=== PATIENT | female | born 1955 | race Caucasian/White ===

== ENCOUNTER 2025-01-14 02:35 | Observation (INO) ==
--- NOTE | 2025-01-14 02:44 | Emergency Department Note ---
Impression & Plan Kidney stone on right side ED Provider Note CHIEF COMPLAINT: Kidney stone HISTORY OF PRESENTING ILLNESS: This 69-year-old female patient presents to the emergency department with her for evaluation of a known right kidney stone. The patient was seen at [facility] ER on 01/08/2025 and diagnosed with a 1.6 cm calculus obstructing the right UPJ with mild right hydronephrosis as well as an adjacent 7 mm calculus in the right UPJ. There were multiple bilateral renal calculi and bilateral renal cysts. Blood work on 01/08/2025 showed a normal white blood cell count of 7.84, hemoglobin 11.8, and platelet count of 324. The patient's urinalysis had 2+ blood, but no evidence for infection. Her creatinine was normal at 1.29 with a BUN of 14. The patient saw Dr. Knight of urology on 01/12/2025 and is scheduled for lithotripsy on 01/22/2025. However, tonight she developed severe pain that was not controlled by her oxycodone prescription. Her last dose of ibuprofen was at 9:30 pm and last dose of Tylenol at 10 pm. She took the oxycodone at 11:30 pm without improvement. She denies any fevers. Nausea, but no vomiting. Denies any urinary symptoms. Denies chest pain or SOB. She is not on blood thinners. She has 2 days left of her cefpodoxime. She was not told to take Flomax. REVIEW OF SYSTEMS: See HPI for pertinent positives and pertinent negatives. ALLERGIES: Sulfa, Percocet MEDICATIONS: See below PAST MEDICAL HISTORY: See below PHYSICAL EXAM: VITALS: Vitals are noted on the nurse's note and reviewed by myself. GENERAL: Non toxic, in no acute distress, non-diaphoretic. SKIN: Capillary refill <2 sec. EYES: PERRLA. EOMI. Conjunctivae without injection, sclerae without icterus. NOSE: Patent without discharge. MOUTH: Mucous membranes moist. Uvula midline. Airway patent. NECK: Supple without nuchal rigidity. HEART: Regular rate and rhythm without murmurs gallops or rubs. LUNGS: Clear to auscultation bilaterally without wheezes, rales or rhonchi. No retractions or accessory muscle use. ABDOMEN: Positive bowel sounds x 4. Normal tympanic percussion. Soft, nontender to palpation as the patient states that her pain is deeper than palpation. No masses or hepatosplenomegaly. Kimball sign negative. No CVA tenderness. No guarding, rigidity, or rebound tenderness. No focal RLQ or LLQ tenderness. NEURO: Patient was alert and oriented. No focal neurological deficits. DIFFERENTIAL DIAGNOSIS: Differential diagnosis includes hepatitis, pancreatitis, cholecystitis, cholelithiasis, appendicitis, kidney stone, pyelonephritis, UTI, gastritis, gastroenteritis, mesenteric adenitis, obstruction, constipation, hernia, abdominal abscess, perforation, diverticulitis, IBD, ischemic colitis, abdominal aortic aneurysm, , ectopic , ovarian cyst, ovarian torsion, acute salpingitis, or others. ED COURSE AND MEDICAL DECISION MAKING: MEDICATIONS GIVEN: 500 mL normal saline solution bolus. Toradol 10 mg IV, Dilaudid 0.25 mg IV, and Zofran 4 mg IV. Phenergan 12.5 mg IV. Tylenol 1000 mg IV. Flomax 0.4 mg p.o. Rocephin 2 g IV. MONITOR: Continuous compliance monitor: Order was placed for continuous compliance monitor. Patient was placed on the compliance monitor and continuous pulse ox. Patient was noted to be in normal sinus rhythm at an initial rate of 70 bpm per my interpretation. INTERPRETATION OF LABS: I interpreted the labs with full lab results as below in the lab section of this note. Laboratory results pertinent to the emergent complaint are discussed in the MDM section below. The patient was advised to follow up with their PCP and/or specialist(s) for further outpatient monitoring and management of any abnormal results. INTERPRETATION OF IMAGING: Imaging studies were interpreted by myself and read by radiology as per the imaging section of this note. The patient was advised to follow up with their PCP and/or specialist(s) for further outpatient management of any non-emergent abnormal findings. CT scan of the abdomen and pelvis without contrast shows gross hydronephrosis of the right kidney due to a large obstructing calculus of 23 x 24 mm and a 9 x 8 mm right pelviureteric junction stone. There is slightly increased hydronephrosis from her previous imaging. Right sided hydroureter seen up to the large calculus involving the right lower ureter distal to the iliac vessel crossing which is a new finding. The patient also has stable nonobstructing renal calculi bilaterally. Diverticulosis without diverticulitis. EXTERNAL RECORDS REVIEWED: I reviewed the CT scan findings and laboratory studies from [facility] as summarized above. I also reviewed the patient's urology office visit note from 01/12/2025. CONSULTATIONS: On-call hospitalist MDM SUMMARY: I examined the patient. The patient was diagnosed with a 1.6 cm and a 7 mm obstructing the right UPJ with mild hydronephrosis. The patient saw urology on 01/12/2025 and is scheduled for lithotripsy on 01/22/2025. However, the patient had severe pain tonight that was not relieved with oxycodone. An IV lock was placed and labs were drawn. The patient was hydrated with 500 mL normal saline solution bolus and medicated as above for her pain and nausea. The patient was also given Flomax 0.4 mg p.o. White blood cell count normal at 6.66. Hemoglobin normal at 12.7. Platelet count normal at 360. Creatinine has increased to 1.67 from 1.29 on 01/08/2025. BUN is normal at 23. CMP otherwise normal. Lipase normal. Urinalysis with 1+ protein, 3+ blood, 2+ leukocyte esterase, greater than 50 white blood cells, and greater than 20 red blood cells. Urine culture is pending. The patient was given Rocephin 2 g IV due to concerns for infection. CT scan of the abdomen and pelvis without contrast shows gross hydronephrosis of the right kidney due to a large obstructing calculus of 23 x 24 mm and a 9 x 8 mm right pelviureteric junction stone. There is slightly increased hydronephrosis from her previous imaging. Right sided hydroureter seen up to the large calculus involving the right lower ureter distal to the iliac vessel crossing which is a new finding. The patient also has stable nonobstructing renal calculi bilaterally. Diverticulosis without diverticulitis. I had a meaningful discussion about this patient with Dr. Rojo who agrees with my assessment and the treatment plan. While the patient's pain did improve with the above medications, she is still symptomatic and does not feel that she can manage her symptoms at home. Given the patient's pain, large stones, and concern for infection, I agree the patient would benefit from admission. I spoke with the on-call hospitalist who agreed to admit the patient for further management. Please refer to their dictation for further details. The patient's care was transferred in stable condition. DIAGNOSIS: Large right kidney stones with ? Infection Past Med/Surg History Problem List Kidney stone on right side (Acute) Changing skin lesion Encounter for pre-operative examination Encounter for breast reconstruction following mastectomy Arthritis Back problem Incisional hernia Painful scar History of mastectomy 2002 Right Medical History Pulmonary nodule Limb alert care status RUE Ventral hernia History of colon cancer s/p colon resection History of breast cancer s/p right mastectomy Osteoarthritis Attention deficit disorder (ADD) Kidney stones Surgical History S/P breast implant, saline (~09/2019) s Bilateral Breast Implant Exchange for Saline Breast Implants(Bilateral) - Kathi Riley MD s Revision Abdominal Scar(Not Applicable) - Kathi Riley MD History of incisional hernia repair (10/08/19) Open Incisional Hernia Repair with Ovitex Mesh, Umbilical Hernia Repair, Enterolysis(Not Applicable) - Nicolas Carranza, DO 10/08/19 Nausea and vomiting after administration of anesthetic agent History of tooth extraction wisdom teeth H/O lithotripsy 2008 & 2009; laser lithotripsy 2010 Family History Aunt Breast cancer maternal Father Colorectal cancer Diabetes Other Cancer Social History Smoking Status: Never smoker Second Hand Exposure: No; Do You Dip or Chew Tobacco: No; Hx Alcohol Use: Yes Alcohol type: beer and wine Alcohol Intake Frequency Comment: 2-3 drinks a week Hx Substance Use: No Preferred Language: Danish Communication Ability: Effective Coloring Room Worker Required: No Beliefs That Will Affect Care: None marital status: Current Living Situation: Spouse current occupational status: retired Feels Safe at Home: Yes Assistive Devices: Glasses Allergies Allergies Allergy/AdvReac Type Severity Reaction Status Date / Time Sulfa (Sulfonamide Allergy Intermediate Hives Verified 01/14/25 03:48 Antibiotics) oxycodone [From Percocet] AdvReac Intermediate "LOOPY", Verified 01/14/25 03:47 VOMITING Home Meds Home Medications Medication Instructions Recorded Confirmed alendronate 70 mg tablet 70 mg PO WK 08/28/21 01/14/25 dextroamphetamine-amphetamine 20 10 mg PO DAILY 01/04/24 01/14/25 mg tablet cetirizine 10 mg capsule (Zyrtec) 10 mg PO DAILY 05/21/24 01/14/25 atorvastatin 20 mg tablet 20 mg PO DAILY 01/12/25 01/14/25 bupropion HCl 150 mg 24 hr tablet, 300 mg PO DAILY 01/12/25 01/14/25 extended release cefpodoxime 200 mg tablet 200 mg PO 2XD 01/12/25 01/14/25 lisinopril 5 mg tablet 5 mg PO DAILY 01/12/25 01/14/25 ondansetron 4 mg disintegrating 4 mg PO Q12H PRN Nausea 01/12/25 01/14/25 tablet sumatriptan succinate 25 mg tablet 25 mg PO 2XD PRN Migraine Headache 01/12/25 01/14/25 magnesium 200 mg tablet 400 mg PO DAILY 01/14/25 01/14/25 riboflavin (vitamin B2) 400 mg 400 mg PO DAILY 01/14/25 01/14/25 tablet Results & Data (ED) Vital Signs Vital Signs - 24 hr 01/14/25 02:37 01/14/25 03:00 01/14/25 03:04 Temperature 36.5 C Temperature Source Temporal Artery Scan Pulse Rate 78 67 Pulse Rate [Apical] 70 Pulse Rate from SpO2 Sensor Pulse Rhythm Regular Pulse Rhythm [Apical] Regular Respiratory Rate 16 15 16 Respiratory Effort / Characteristics Non-Labored Spontaneous Non-Labored Spontaneous Respiratory Depth Normal Normal Respiratory Pattern Regular Regular Blood Pressure 138/91 Blood Pressure [Left Arm] 135/80 Blood Pressure Mean 106 Blood Pressure Mean [Left Arm] 98 Pulse Oximetry 98 100 100 Oxygen Delivery Method Room Air Room Air Room Air Sepsis Recent Fever Within 48 Hours No Sepsis New/Unexplained Change in Mental Status N/A Sepsis Action Taken by Nursing No Action Required 01/14/25 03:18 01/14/25 03:30 01/14/25 04:00 Temperature Temperature Source Pulse Rate 59 L 56 L 61 Pulse Rate [Apical] Pulse Rate from SpO2 Sensor 55 L 61 Pulse Rhythm Pulse Rhythm [Apical] Respiratory Rate 18 15 Respiratory Effort / Characteristics Respiratory Depth Respiratory Pattern Blood Pressure 153/76 H 130/71 Blood Pressure [Left Arm] Blood Pressure Mean 101 90 Blood Pressure Mean [Left Arm] Pulse Oximetry 99 96 Oxygen Delivery Method Room Air Sepsis Recent Fever Within 48 Hours Sepsis New/Unexplained Change in Mental Status Sepsis Action Taken by Nursing 01/14/25 04:30 01/14/25 04:30 01/14/25 06:00 Temperature Temperature Source Pulse Rate 60 Pulse Rate [Apical] 64 64 Pulse Rate from SpO2 Sensor 61 Pulse Rhythm Pulse Rhythm [Apical] Regular Regular Respiratory Rate 18 16 15 Respiratory Effort / Characteristics Non-Labored Spontaneous Non-Labored Spontaneous Respiratory Depth Normal Normal Respiratory Pattern Regular Regular Blood Pressure 132/74 Blood Pressure [Left Arm] 132/74 144/81 H Blood Pressure Mean 93 Blood Pressure Mean [Left Arm] 93 102 Pulse Oximetry 94 93 100 Oxygen Delivery Method Room Air Room Air Room Air Sepsis Recent Fever Within 48 Hours Sepsis New/Unexplained Change in Mental Status Sepsis Action Taken by Nursing 01/14/25 06:40 Temperature Temperature Source Pulse Rate 62 Pulse Rate [Apical] Pulse Rate from SpO2 Sensor Pulse Rhythm Pulse Rhythm [Apical] Respiratory Rate 16 Respiratory Effort / Characteristics Respiratory Depth Respiratory Pattern Blood Pressure 139/83 Blood Pressure [Left Arm] Blood Pressure Mean Blood Pressure Mean [Left Arm] Pulse Oximetry 96 Oxygen Delivery Method Room Air Sepsis Recent Fever Within 48 Hours Sepsis New/Unexplained Change in Mental Status Sepsis Action Taken by Nursing Laboratory Data 01/14/25 02:59 01/14/25 02:59 Lab Results 01/14/25 01/14/25 Range/Units 02:59 04:15 WBC 6.66 (4.8-10.8) K/ul RBC 3.97 L (4.20-5.40) M/uL Hgb 12.7 (12.0-16.0) g/dL Hct 38.9 (37.0-47.0) % MCV 98.0 (80.0-100.0) fL MCH 32.0 (25.0-34.0) pg MCHC 32.6 (32.0-36.0) g/dL RDW Std Deviation 45.9 (36.4-46.3) fL RDW Coeff of Guillermo 12.7 (11.5-14.5) % Plt Count 361 (130-400) K/uL MPV 8.9 L (9.4-12.4) fL Immature Gran % (Auto) 0.2 % Neut % (Auto) 58.4 % Lymph % (Auto) 27.2 % [place] % (Auto) 9.2 % Eos % (Auto) 3.9 % Baso % (Auto) 1.1 % Neut # (Auto) 3.90 (1.40-6.50) K/uL Lymph # (Auto) 1.81 (1.20-3.40) K/uL [place] # (Auto) 0.61 H (0.11-0.59) K/uL Eos # (Auto) 0.26 (0.00-0.50) K/uL Baso # (Auto) 0.07 (0.00-0.20) K/uL Immature Gran # (Auto) 0.01 (0.01-0.20) K/uL Sodium 136 (136-145) mmol/L Potassium 4.6 (3.5-5.1) mmol/L Chloride 103 (98-107) mmol/L Carbon Dioxide 26 (21-32) mmol/L Anion Gap 7 (3-11) BUN 23 (6-23) mg/dl Creatinine 1.67 H (0.6-1.2) mg/dl Est Cr Clr Drug Dosing 30.5 ml/min eGFR 32.75 BUN/Creatinine Ratio 13.8 (10-20) Glucose 95 (70-99(Fasting)) mg/dl Calcium 9.1 (8.6-10.3) mg/dl Total Bilirubin 0.4 (0.2-1.0) mg/dl AST 28 (13-39) U/L ALT 28 (7-52) U/L Alkaline Phosphatase 50 (34-104) U/L Total Protein 7.0 (6.0-8.3) gm/dl Albumin 4.4 (3.4-5.0) gm/dl Globulin 2.6 (2.5-4.0) gm/dl Albumin/Globulin Ratio 1.7 (0.9-2) Lipase 14 (11-82) U/L Urine Color Dark Yellow Urine Appearance Clear (Clear) Urine pH 7.0 (4.5-7.5) Ur Specific Outing 1.013 (1.000-1.030) Urine Protein 1+ H (Negative) Urine Glucose (UA) Negative (Negative) Urine Ketones Negative (Negative) Urine Blood 3+ H (Negative) Urine Nitrite Negative (Negative) Urine Bilirubin Negative (Negative) Urine Urobilinogen Negative (Negative) Ur Leukocyte Esterase 2+ H (Negative) Urine WBC (Auto) >50 H (0-5) /hpf Urine RBC (Auto) >20 H (0-2) /hpf U Hyaline Cast (Auto) 0-2 (0-2) /lpf U Epithel Cells (Auto) 0-2 (0-2) /hpf Urine Bacteria (Auto) None Seen (None Seen) Urine Comment Administered Medications Sodium Chloride (Nss) 1,000 mls @ 75 mls/hr IV .[id number] ONE Stop: 01/14/25 18:37 Last Admin: 01/14/25 05:44 Dose: 75 mls/hr Documented By: COLBY Discontinued Medications Hydromorphone HCl (Hydromorphone Inj 0.5 Mg/0.5 Ml Syr) 0.25 mg IV NOW STA Stop: 01/14/25 03:00 Last Admin: 01/14/25 03:14 Dose: 0.25 mg Documented By: COLBY Sodium Chloride (Nss) 500 mls @ 999 mls/hr IV .[id number] ONE Stop: 01/14/25 03:29 Last Infusion: 01/14/25 03:35 Dose: Infused Documented By: Admin: 01/14/25 03:12 Dose: 999 mls/hr Documented By: COLBY Promethazine HCl (Phenergan) 12.5 mg in 50.5 mls @ 202 mls/hr IV NOW STA Stop: 01/14/25 04:57 Last Infusion: 01/14/25 05:15 Dose: Infused Documented By: Admin: 01/14/25 04:57 Dose: 202 mls/hr Documented By: COLBY Ceftriaxone Sodium (Rocephin) 2,000 mg in 50 mls @ 100 mls/hr IV NOW STA Stop: 01/14/25 05:25 Last Infusion: 01/14/25 05:45 Dose: Infused Documented By: Admin: 01/14/25 05:18 Dose: 100 mls/hr Documented By: COLBY Acetaminophen (Ofirmev) 1,000 mg in 100 mls @ 400 mls/hr IV NOW STA Stop: 01/14/25 05:24 Last Infusion: 01/14/25 06:00 Dose: Infused Documented By: Admin: 01/14/25 05:45 Dose: 400 mls/hr Documented By: COLBY Ketorolac Tromethamine (Ketorolac Tromethamine 15 Mg/Ml Vial) 10 mg IV NOW ONE Stop: 01/14/25 03:00 Last Admin: 01/14/25 03:14 Dose: 10 mg Documented By: COLBY Ondansetron HCl (Ondansetron Inj 2 Mg/Ml 2 Ml Vial) 4 mg IV NOW STA Stop: 01/14/25 03:00 Last Admin: 01/14/25 03:14 Dose: 4 mg Documented By: COLBY Tamsulosin HCl (Tamsulosin Hcl 0.4 Mg Cap) 0.4 mg PO NOW ONE Stop: 01/14/25 05:11 Last Admin: 01/14/25 05:40 Dose: 0.4 mg Documented By: COLBY Imaging Data Radiologist's Impression: Abdomen/Pelvis CT 01/14/25 03:51 EXAM: CT abd pelvis wo con CLINICAL HISTORY: worsening sxs from large right stones TECHNIQUE: Contiguous axial images were obtained from the level of the diaphragm to the pubic symphysis without intravenous or oral contrast. Coronal and sagittal reconstructions were likewise performed and indicated to increase the sensitivity for detecting clinically relevant pathology. CT scan was performed according to ALARA (as low as reasonably achievable). COMPARISON: 18:13:15 FRIT MIXER AND BURNER. FINDINGS: The visualized lung bases are clear. Evaluation of the abdominal and pelvic visceral organs is limited without intravenous contrast. The unenhanced liver, spleen, pancreas, and adrenal glands are grossly unremarkable. The gallbladder is present. The kidneys are normal in size and attenuation. Right kidney shows gross hydronephrosis due to large obstructing calculus of size 23 x 24 mm and 9 x 8 mm involving right pelviureteric junction. Right sided hydroureter is seen up to the large calculus of size 9 mm involving right lower ureter, distal to the iliac vessel crossing. Right kidney shows non-obstructing calculi of size 3 mm in mid calyx, 2 mm and 4 mm in lower calyx. Left kidney shows non-obstructing calculi of size 2 mm in upper calyx, 10.7 mm , 11 mm in mid calyx and 12 mm in lower calyx. Stable renal cyst. No adenopathy or fluid collections are seen. No evidence of focal or diffuse bowel wall thickening or evidence of bowel obstruction is seen. No imaging evidence of appendicitis. The aorta is normal in caliber. The urinary bladder is normal in contour. Pelvic viscera are grossly unremarkable. No aggressive appearing osseous lesions are identified. Multiple small uncomplicated colonic diverticulosis. Degenerative changes involving spine in the form of multilevel marginal osteophytes, disc space reduction and facetal arthrosis. IMPRESSION: Right kidney shows gross hydronephrosis due to large obstructing calculus of size 23 x 24 mm and 9 x 8 mm involving right pelviureteric junction. - slightly increased hydronephrosis. Right sided hydroureter is seen up to the large calculus of size 9 mm involving right lower ureter, distal to the iliac vessel crossing.- -new finding. Right kidney shows non-obstructing calculi of size 3 mm in mid calyx, 2 mm and 4 mm in lower calyx.- stable. Left kidney shows non-obstructing calculi of size 2 mm in upper calyx, 10.7 mm , 11 mm in mid calyx and 12 mm in lower calyx. increased in size and number. Multiple small uncomplicated colonic diverticulosis.-stable. Electronically signed by Keith Bird 01-14-2025 05:00 AM Discharge Plan Visit Data Chief Complaint: Kidney Stone Stated Complaint: KIDNEY STONE ED Provider: Rosa Maria Rojo ED Midlevel Provider: Patricia Siddiqi. Discharge Problem: Kidney stone on right side Patient Disposition: Admitted As Inpatient Condition: Fair Discharge Instructions Interventions: ED Discharge Assessment Last Done: 01/14/25 06:40 Forms Stand Alone Forms: [facility] Prescriptions Prescriptions: No Action ondansetron 4 mg tablet,disintegrating 4 mg PO Q12H MDD 8mg PRN (Reason: Nausea) cefpodoxime 200 mg tablet 200 mg PO 2XD bupropion HCl 150 mg tablet extended release 24 hr 300 mg PO DAILY atorvastatin 20 mg tablet 20 mg PO DAILY lisinopril 5 mg tablet 5 mg PO DAILY sumatriptan succinate 25 mg tablet 25 mg PO 2XD PRN (Reason: Migraine Headache) Zyrtec 10 mg capsule 10 mg PO DAILY alendronate 70 mg tablet 70 mg PO WK Rx Instructions: TAKES ON WEDNESDAYS. dextroamphetamine-amphetamine 20 mg tablet 10 mg PO DAILY magnesium 200 mg Tablet 400 mg PO DAILY riboflavin (vitamin B2) 400 mg Tablet 400 mg PO DAILY Referrals Referrals: Mariposa Rios MD [Primary Care Provider] -
[2025-01-14] MEDS: SODIUM CHLORIDE 0.9% 500 ML IV ONE (03:12)
[2025-01-14] MEDS: HYDROmorphone INJ 0.5 MG/0.5 ML SYR IV STA (03:14)
[2025-01-14] MEDS: KETOROLAC TROMETHAMINE 15 MG/ML VIAL IV ONE (03:14)
[2025-01-14] MEDS: ONDANSETRON INJ 2 MG/ML 2 ML VIAL IV STA (03:14)
[2025-01-14 03:21] LABS: Hematocrit (blood only) 38.9 % (37.0-47.0); Hemoglobin 12.7 g/dL (12.0-16.0); Immature Granulocytes # (auto) 0.01 K/uL (0.01-0.20); Immature Granulocytes % (auto) 0.2 %; Mean Corpuscular Hemoglobin 32.0 pg (25.0-34.0); Mean Corpuscular Volume 98.0 fL (80.0-100.0); Platelet Count 361 K/uL (130-400); RDW Standard Deviation 45.9 fL (36.4-46.3); Red Blood Count 3.97 M/uL (4.20-5.40); White Blood Count 6.66 K/ul (4.8-10.8)
[2025-01-14 03:38] LABS: Alanine Aminotransferase 28.0 U/L (7-52); Albumin Globulin Ratio 1.7 (0.9-2); Albumin Level 4.4 gm/dl (3.4-5.0); Alkaline Phosphatase 50.0 U/L (34-104); Anion Gap 7.0 (3-11); Bilirubin,Total 0.4 mg/dl (0.2-1.0); Blood Urea Nitrogen 23.0 mg/dl (6-23); Calcium 9.1 mg/dl (8.6-10.3); Carbon Dioxide 26.0 mmol/L (21-32); Chloride 103.0 mmol/L (98-107); Creatinine Clr Calc Pharmacy 30.5 ml/min; Globulin 2.6 gm/dl (2.5-4.0); Glucose 95.0 mg/dl (70-99(Fasting)); Lipase 14.0 U/L (11-82); Potassium 4.6 mmol/L (3.5-5.1); Sodium 136.0 mmol/L (136-145); Total Protein 7.0 gm/dl (6.0-8.3)
--- NOTE | 2025-01-14 04:29 | Emergency Department Note ---
ED Visit Note I was consulted by the [facility] Provider. I personally made/approved the management plan and take responsibility for the patient management. I performed a substantive portion of the visit. This includes the aspects of: Personally seeing the patient -MDM Patient will be admitted to the [facility] service .
[2025-01-14 04:43] LABS: Appearance Urine Clear (Clear); Bacteria Urine Automated None Seen (None Seen); Cast Urine Automated 0-2 /lpf (0-2); Epithelial Cell Urine Auto 0-2 /hpf (0-2); Glucose Urine UA Negative (Negative); RBC Urine Automated >20 /hpf (0-2); WBC Urine Automated >50 /hpf (0-5)
[2025-01-14] MEDS: PROMETHAZINE 12.5 MG/50.5 ML BAG IV STA (04:57)
--- NOTE | 2025-01-14 05:01 | CT Scan Report ---
EXAM: CT abd pelvis wo con CLINICAL HISTORY: worsening sxs from large right stones TECHNIQUE: Contiguous axial images were obtained from the level of the diaphragm to the pubic symphysis without intravenous or oral contrast. Coronal and sagittal reconstructions were likewise performed and indicated to increase the sensitivity for detecting clinically relevant pathology. CT scan was performed according to ALARA (as low as reasonably achievable). COMPARISON: 18:13:15 GYRO COMPASS TESTER. FINDINGS: The visualized lung bases are clear. Evaluation of the abdominal and pelvic visceral organs is limited without intravenous contrast. The unenhanced liver, spleen, pancreas, and adrenal glands are grossly unremarkable. The gallbladder is present. The kidneys are normal in size and attenuation. Right kidney shows gross hydronephrosis due to large obstructing calculus of size 23 x 24 mm and 9 x 8 mm involving right pelviureteric junction. Right sided hydroureter is seen up to the large calculus of size 9 mm involving right lower ureter, distal to the iliac vessel crossing. Right kidney shows non-obstructing calculi of size 3 mm in mid calyx, 2 mm and 4 mm in lower calyx. Left kidney shows non-obstructing calculi of size 2 mm in upper calyx, 10.7 mm , 11 mm in mid calyx and 12 mm in lower calyx. Stable renal cyst. No adenopathy or fluid collections are seen. No evidence of focal or diffuse bowel wall thickening or evidence of bowel obstruction is seen. No imaging evidence of appendicitis. The aorta is normal in caliber. The urinary bladder is normal in contour. Pelvic viscera are grossly unremarkable. No aggressive appearing osseous lesions are identified. Multiple small uncomplicated colonic diverticulosis. Degenerative changes involving spine in the form of multilevel marginal osteophytes, disc space reduction and facetal arthrosis. IMPRESSION: Right kidney shows gross hydronephrosis due to large obstructing calculus of size 23 x 24 mm and 9 x 8 mm involving right pelviureteric junction. - slightly increased hydronephrosis. Right sided hydroureter is seen up to the large calculus of size 9 mm involving right lower ureter, distal to the iliac vessel crossing.- -new finding. Right kidney shows non-obstructing calculi of size 3 mm in mid calyx, 2 mm and 4 mm in lower calyx.- stable. Left kidney shows non-obstructing calculi of size 2 mm in upper calyx, 10.7 mm , 11 mm in mid calyx and 12 mm in lower calyx. increased in size and number. Multiple small uncomplicated colonic diverticulosis.-stable. Electronically signed by Keith Bird 01-14-2025 05:00 AM
[2025-01-14] MEDS: cefTRIAXone SODIUM 2,000 MG/50 ML BAG IV STA (05:18)
--- NOTE | 2025-01-14 05:23 | History & Physical Report ---
Date of Service January 14, 2025 Assessment & Plan (1) ARF (acute renal failure): Plan: Assessment and plan below following discussion of case with ED provider and reviewing patient history/pertinent normal/abnormal diagnostic test results. ARF Secondary to progressive obstructive uropathy Recurrent kidney stones No sepsis for now Home CAITLYN inhibitor and NSAID Rx contributory hypertension, stable hyperlipidemia on statin Rx Right breast cancer status post surgery status post tamoxifen Rx, in remission colon cancer status post surgery, in remission ADHD, mood disorder, stable on regimen Admit to MedSurg Analgesia, strain urine Patient counseled regarding adverse effects of NSAIDs on kidney function. Monitor creatinine response to IVF, hold lisinopril until creatinine back to baseline Urology consult re: obstructing kidney stone N.p.o. in anticipation of procedure DVT prophylaxis. Heparin subcu Full code Text document was generated using [email or web address] voice recognition software. It may contain grammatical or spelling errors. Kindly contact undersigned for clarification of any documentation item in question. History of Present Illness Chief Complaint: Worsening kidney stone pain Primary Care Provider: Mariposa Rios MD History obtained from patient and records. Medical history significant for hypertension, hyperlipidemia, breast cancer status post surgery status post tamoxifen Rx, colon cancer status post surgery, history of calcium oxalate kidney stones, migraine, ADHD, mood disorder. Last week, patient had achy right sided flank pain symptoms reminiscent of kidney stone attack. No fever, no chills, no hematuria. Patient consulted [facility] ER. CT abdomen pelvis showed mild right hydronephrosis with note of 1.6 cm calculus obstructing the right UPJ. Another 7 mm calculus noted in the right UPJ as well. Patient refused admission recommendation because she would need to be transferred to [facility] for urology services after a few days. Patient prescribed oral cefpodoxime course and oxycodone medications on dis charge. Patient saw [facility] urologist 2 days ago. Surgery contemplated 01/22. Patient had worsening discomfort last night, unrelieved by oxycodone Rx. Patient trying to sparingly use oxycodone due to adverse effects from prior intake. Ibuprofen working better for patient's pain as per her account. Patient without hematuria, fever, chills. Good bowel movement. Patient consulted ER for worsening symptoms. Medical History as above Surgical History : Urologic procedures, breast implant, breast reconstruction, colectomy, finger surgery, right modified radical mastectomy, umbilical hernia repair, Reeder neuroma removal right foot Family History : Alcoholism, breast cancer, DM, heart disease, ovarian cancer, rectal cancer, suicide Personal/Social history : Non-smoker, occasional EtOH intake, retired schoolteacher Allergies Allergy/AdvReac Type Severity Reaction Status Date / Time Sulfa (Sulfonamide Allergy Intermediate Hives Verified 01/14/25 03:48 Antibiotics) oxycodone [From Percocet] AdvReac Intermediate "LOOPY", Verified 01/14/25 03:47 VOMITING Home Medications Medication Instructions Recorded Confirmed Type alendronate 70 mg tablet 70 mg PO WK 08/28/21 01/14/25 History dextroamphetamine-amphetamine 20 10 mg PO DAILY 01/04/24 01/14/25 History mg tablet cetirizine 10 mg capsule (Zyrtec) 10 mg PO DAILY 05/21/24 01/14/25 History atorvastatin 20 mg tablet 20 mg PO DAILY 01/12/25 01/14/25 History bupropion HCl 150 mg 24 hr tablet, 300 mg PO DAILY 01/12/25 01/14/25 History extended release cefpodoxime 200 mg tablet 200 mg PO 2XD 01/12/25 01/14/25 History lisinopril 5 mg tablet 5 mg PO DAILY 01/12/25 01/14/25 History ondansetron 4 mg disintegrating 4 mg PO Q12H PRN Nausea 01/12/25 01/14/25 History tablet sumatriptan succinate 25 mg tablet 25 mg PO 2XD PRN Migraine Headache 01/12/25 01/14/25 History magnesium 200 mg tablet 400 mg PO DAILY 01/14/25 01/14/25 History riboflavin (vitamin B2) 400 mg 400 mg PO DAILY 01/14/25 01/14/25 History tablet Past Med/Surg History Problem List ARF (acute renal failure) Kidney stone on right side (Acute) Changing skin lesion Encounter for pre-operative examination Encounter for breast reconstruction following mastectomy Arthritis Back problem Incisional hernia Painful scar History of mastectomy 2002 Right Medical History Pulmonary nodule Limb alert care status RUE Ventral hernia History of colon cancer s/p colon resection History of breast cancer s/p right mastectomy Osteoarthritis Attention deficit disorder (ADD) Kidney stones Surgical History S/P breast implant, saline (~09/2019) s Bilateral Breast Implant Exchange for Saline Breast Implants(Bilateral) - Kathi Riley MD s Revision Abdominal Scar(Not Applicable) - Kathi Riley MD History of incisional hernia repair (10/08/19) Open Incisional Hernia Repair with Ovitex Mesh, Umbilical Hernia Repair, Enterolysis(Not Applicable) - Nicolas Carranza, 10/08/19 Nausea and vomiting after administration of anesthetic agent History of tooth extraction wisdom teeth H/O lithotripsy 2008 & 2009; laser lithotripsy 2010 Family History Aunt Breast cancer maternal Father Colorectal cancer Diabetes Other Cancer Social History Smoking Status: Never smoker Second Hand Exposure: No; Do You Dip or Chew Tobacco: No; Hx Alcohol Use: Yes Alcohol type: beer and wine Alcohol Intake Frequency Comment: 2-3 drinks a week Hx Substance Use: No Preferred Language: Somali Communication Ability: Effective Director Of Volunteer Services Required: No Beliefs That Will Affect Care: None marital status: Current Living Situation: Spouse current occupational status: retired Feels Safe at Home: Yes Assistive Devices: Glasses Review of Systems Review of Systems: As per HPI, all other systems reviewed and negative Physical Exam 2 Physical Exam: GENERAL: Comfortable, pleasant, no respiratory distress SKIN: Normal color, warm HEENT: Bespectacled, pink palpebral conjunctivae, no ptosis, dry buccal mucosa NECK : Supple, no tenderness CHEST : CTA, no tenderness HEART : RRR, no obvious murmurs ABDOMEN: Some distention, minimal hypogastric tenderness EXTREMITIES : No LE swelling/tenderness, palpable pulses, no other conspicuous deformities noted NEUROLOGIC : Coherent, no facial asymmetry, no other gross focality Results & Data Results & Data Vital Signs (Past 12 Hours) Vital Signs Temp Pulse Pulse Resp BP BP Pulse Ox 01/14/25 04:30 60 16 132/74 93 01/14/25 04:30 64 18 132/74 94 01/14/25 04:00 61 15 130/71 96 01/14/25 03:30 56 L 18 153/76 H 99 01/14/25 03:04 67 16 100 01/14/25 03:00 70 15 135/80 100 01/14/25 02:37 36.5 C 78 16 138/91 98 O2 Del Method 01/14/25 04:30 Room Air 01/14/25 04:30 Room Air 01/14/25 04:00 Room Air 01/14/25 03:30 01/14/25 03:04 Room Air 01/14/25 03:00 Room Air 01/14/25 02:37 Room Air Laboratory Results Laboratory Results WBC 6.66 K/ul (4.8-10.8) 01/14/25 02:59 RBC 3.97 M/uL (4.20-5.40) L 01/14/25 02:59 Hgb 12.7 g/dL (12.0-16.0) 01/14/25 02:59 Hct 38.9 % (37.0-47.0) 01/14/25 02:59 MCV 98.0 fL (80.0-100.0) 01/14/25 02:59 MCH 32.0 pg (25.0-34.0) 01/14/25 02:59 MCHC 32.6 g/dL (32.0-36.0) 01/14/25 02:59 RDW Std Deviation 45.9 fL (36.4-46.3) 01/14/25 02:59 RDW Coeff of Guillermo 12.7 % (11.5-14.5) 01/14/25 02:59 Plt Count 361 K/uL (130-400) 01/14/25 02:59 MPV 8.9 fL (9.4-12.4) L 01/14/25 02:59 Immature Gran % (Auto) 0.2 % 01/14/25 02:59 Neut % (Auto) 58.4 % 01/14/25 02:59 Lymph % (Auto) 27.2 % 01/14/25 02:59 [place] % (Auto) 9.2 % 01/14/25 02:59 Eos % (Auto) 3.9 % 01/14/25 02:59 Baso % (Auto) 1.1 % 01/14/25 02:59 Neut # (Auto) 3.90 K/uL (1.40-6.50) 01/14/25 02:59 Lymph # (Auto) 1.81 K/uL (1.20-3.40) 01/14/25 02:59 [place] # (Auto) 0.61 K/uL (0.11-0.59) H 01/14/25 02:59 Eos # (Auto) 0.26 K/uL (0.00-0.50) 01/14/25 02:59 Baso # (Auto) 0.07 K/uL (0.00-0.20) 01/14/25 02:59 Immature Gran # (Auto) 0.01 K/uL (0.01-0.20) 01/14/25 02:59 Sodium 136 mmol/L (136-145) 01/14/25 02:59 Potassium 4.6 mmol/L (3.5-5.1) 01/14/25 02:59 Chloride 103 mmol/L (98-107) 01/14/25 02:59 Carbon Dioxide 26 mmol/L (21-32) 01/14/25 02:59 Anion Gap 7 (3-11) 01/14/25 02:59 BUN 23 mg/dl (6-23) 01/14/25 02:59 Creatinine 1.67 mg/dl (0.6-1.2) H 01/14/25 02:59 Est Cr Clr Drug Dosing 30.5 ml/min 01/14/25 02:59 eGFR 32.75 01/14/25 02:59 BUN/Creatinine Ratio 13.8 (10-20) 01/14/25 02:59 Glucose 95 mg/dl (70-99(Fasting)) 01/14/25 02:59 Calcium 9.1 mg/dl (8.6-10.3) 01/14/25 02:59 Total Bilirubin 0.4 mg/dl (0.2-1.0) 01/14/25 02:59 AST 28 U/L (13-39) 01/14/25 02:59 ALT 28 U/L (7-52) 01/14/25 02:59 Alkaline Phosphatase 50 U/L (34-104) 01/14/25 02:59 Total Protein 7.0 gm/dl (6.0-8.3) 01/14/25 02:59 Albumin 4.4 gm/dl (3.4-5.0) 01/14/25 02:59 Globulin 2.6 gm/dl (2.5-4.0) 01/14/25 02:59 Albumin/Globulin Ratio 1.7 (0.9-2) 01/14/25 02:59 Lipase 14 U/L (11-82) 01/14/25 02:59 Urine Color Dark Yellow 01/14/25 04:15 Urine Appearance Clear (Clear) 01/14/25 04:15 Urine pH 7.0 (4.5-7.5) 01/14/25 04:15 Ur Specific [place] 1.013 (1.000-1.030) 01/14/25 04:15 Urine Protein 1+ (Negative) H 01/14/25 04:15 Urine Glucose (UA) Negative (Negative) 01/14/25 04:15 Urine Ketones Negative (Negative) 01/14/25 04:15 Urine Blood 3+ (Negative) H 01/14/25 04:15 Urine Nitrite Negative (Negative) 01/14/25 04:15 Urine Bilirubin Negative (Negative) 01/14/25 04:15 Urine Urobilinogen Negative (Negative) 01/14/25 04:15 Ur Leukocyte Esterase 2+ (Negative) H 01/14/25 04:15 Urine WBC (Auto) >50 /hpf (0-5) H 01/14/25 04:15 Urine RBC (Auto) >20 /hpf (0-2) H 01/14/25 04:15 U Hyaline Cast (Auto) 0-2 /lpf (0-2) 01/14/25 04:15 U Epithel Cells (Auto) 0-2 /hpf (0-2) 01/14/25 04:15 Urine Bacteria (Auto) None Seen (None Seen) 01/14/25 04:15 Urine Comment 01/14/25 04:15 Impressions Abdomen/Pelvis CT 01/14/25 03:51 EXAM: CT abd pelvis wo con CLINICAL HISTORY: worsening sxs from large right stones TECHNIQUE: Contiguous axial images were obtained from the level of the diaphragm to the pubic symphysis without intravenous or oral contrast. Coronal and sagittal reconstructions were likewise performed and indicated to increase the sensitivity for detecting clinically relevant pathology. CT scan was performed according to ALARA (as low as reasonably achievable). COMPARISON: 18:13:15 PRINTING GRAY CLOTH TENDER. FINDINGS: The visualized lung bases are clear. Evaluation of the abdominal and pelvic visceral organs is limited without intravenous contrast. The unenhanced liver, spleen, pancreas, and adrenal glands are grossly unremarkable. The gallbladder is present. The kidneys are normal in size and attenuation. Right kidney shows gross hydronephrosis due to large obstructing calculus of size 23 x 24 mm and 9 x 8 mm involving right pelviureteric junction. Right sided hydroureter is seen up to the large calculus of size 9 mm involving right lower ureter, distal to the iliac vessel crossing. Right kidney shows non-obstructing calculi of size 3 mm in mid calyx, 2 mm and 4 mm in lower calyx. Left kidney shows non-obstructing calculi of size 2 mm in upper calyx, 10.7 mm , 11 mm in mid calyx and 12 mm in lower calyx. Stable renal cyst. No adenopathy or fluid collections are seen. No evidence of focal or diffuse bowel wall thickening or evidence of bowel obstruction is seen. No imaging evidence of appendicitis. The aorta is normal in caliber. The urinary bladder is normal in contour. Pelvic viscera are grossly unremarkable. No aggressive appearing osseous lesions are identified. Multiple small uncomplicated colonic diverticulosis. Degenerative changes involving spine in the form of multilevel marginal osteophytes, disc space reduction and facetal arthrosis. IMPRESSION: Right kidney shows gross hydronephrosis due to large obstructing calculus of size 23 x 24 mm and 9 x 8 mm involving right pelviureteric junction. - slightly increased hydronephrosis. Right sided hydroureter is seen up to the large calculus of size 9 mm involving right lower ureter, distal to the iliac vessel crossing.- -new finding. Right kidney shows non-obstructing calculi of size 3 mm in mid calyx, 2 mm and 4 mm in lower calyx.- stable. Left kidney shows non-obstructing calculi of size 2 mm in upper calyx, 10.7 mm , 11 mm in mid calyx and 12 mm in lower calyx. increased in size and number. Multiple small uncomplicated colonic diverticulosis.-stable. Electronically signed by Keith Bird 01-14-2025 05:00 AM
[2025-01-14] MEDS ORDERED: ACETAMINOPHEN 325 MG TAB PO PRN (05:24)
[2025-01-14] MEDS ORDERED: HYDROmorphone INJ 0.5 MG/0.5 ML SYR IV PRN (05:24)
[2025-01-14] MEDS ORDERED: PROMETHAZINE 6.25 MG/50.25 ML BAG IV PRN (05:24)
[2025-01-14] MEDS: TAMSULOSIN HCL 0.4 MG CAP PO ONE (05:40)
[2025-01-14] MEDS: SODIUM CHLORIDE 0.9% 1,000 ML IV ONE (05:44)
[2025-01-14] MEDS: ACETAMINOPHEN 1,000 MG/100 ML VIAL IV STA ×2 (05:45→17:16)
[2025-01-14] MEDS ORDERED: HYDROCODONE/ACETAMOPHEN 5/325MG TAB PO PRN (05:58)
[2025-01-14] MEDS: ATORVASTATIN 20 MG TAB PO SCH (08:55)
[2025-01-14] MEDS ORDERED: CETIRIZINE HCL 10 MG TABLET PO SCH (09:00)
[2025-01-14] MEDS ORDERED: NON-FORMULARY MEDICATION (Riboflavin (Vitamin B2) 400 mg Tablet) PO SCH (09:00)
[2025-01-14] MEDS: DEXTROAMPHETAMINE/AMPHETAMINE IR 20 MG TAB PO SCH (09:05)
--- NOTE | 2025-01-14 09:29 | Urology Consultation ---
<Statement entered by Lanre Knight MD - 01/14/25 12:22> 69-year-old female recently seen in the urology office for nephrolithiasis. It appears that one of her right renal stones has moved to the mid ureter and is now causing flank pain and worsened renal function. We will plan on cystoscopy, right retrograde pyelogram and right ureteral stent placement. Due to the v olume of stone we may also need to perform laser lithotripsy to facilitate stent placement. Date of Consultation January 14, 2025 Assessment & Plan (1) Kidney stone on right side: 69-year-old female admitted for right flank pain and ANTONIETTA secondary to large obstructing right calculi. Patient afebrile and hemodynamically stable Labs reviewedcreatinine 1.67, WBC 6.66, hemoglobin 12.7 Urinalysis showed blood, leukocyte esterase and pyuria, but was negative for bacteria Urine culture 01/12 prelim with no growth Urine culture 01/14 pending She has been on course of cefpodoxime as an outpatient She received ceftriaxone in the emergency department CT abdomen pelvis reviewed and discussed Offered surgical intervention with right ureteroscopy with laser lithotripsy and right stent placement today, she is agreeable Will proceed to OR for Cystoscopy, retrograde pyelogram, right ureteroscopy, laser lithotripsy, stone basketing, and right ureteral stent placement Risks and benefits of procedure to be reviewed with patient by Dr. Knight Keep n.p.o. for procedure She has received ceftriaxone this morning, which is appropriate for preop antibiotic Continue supportive care medical management per primary service Urology will follow, please contact service with any additional questions or concerns History of Present Illness Reason for Consultation: hydroureter, large stone Attending Physician: Eugene Galindo MD History of Present Illness This is a 69-year-old female who recently established with urology for bilateral nephrolithiasis. She was set up for outpatient surgical intervention with right ureteroscopy with laser lithotripsy on 01/22. In the interim, she developed severe right flank pain and presented to the emergency department today for further evaluation. On arrival, she was afebrile and hemodynamically stable. Lab work showed WBC 6.66, hemoglobin 12.7, creatinine 1.67. Urinalysis demonstrated 1+ protein, 3+ blood, 2+ LE, >50 WBC, >20 RBC, negative for bacteria. Workup included CT abdomen and pelvis which demonstrates right hydronephrosis secondary to a large obstructing calculi involving the right UPJ measuring approximately 23 x 24 mm and 9 x 8 mm, right hydroureter up to an obstructing 9 mm calculus in the right lower ureter. Bilateral nonobstructing renal calculi. Patient was admitted to the hospital medicine service for right obstructing calculi and ANTONIETTA. Urology is consulted for large stones and hydronephrosis. Patient seen and examined at bedside this morning. She reports pain is improved since arrival. She rates her discomfort at 3 out of 10. Nausea and vomiting has resolved. No fever or chills. She is voiding spontaneously. She is currently NPO. Allergies Allergy/AdvReac Type Severity Reaction Status Date / Time Sulfa (Sulfonamide Allergy Intermediate Hives Verified 01/14/25 03:48 Antibiotics) oxycodone [From Percocet] AdvReac Intermediate "LOOPY", Verified 01/14/25 03:47 VOMITING Home Medications Medication Instructions Recorded Confirmed Type alendronate 70 mg tablet 70 mg PO WK 08/28/21 01/14/25 History dextroamphetamine-amphetamine 20 10 mg PO DAILY 01/04/24 01/14/25 History mg tablet cetirizine 10 mg capsule (Zyrtec) 10 mg PO DAILY 05/21/24 01/14/25 History atorvastatin 20 mg tablet 20 mg PO DAILY 01/12/25 01/14/25 History bupropion HCl 150 mg 24 hr tablet, 300 mg PO DAILY 01/12/25 01/14/25 History extended release cefpodoxime 200 mg tablet 200 mg PO 2XD 01/12/25 01/14/25 History lisinopril 5 mg tablet 5 mg PO DAILY 01/12/25 01/14/25 History ondansetron 4 mg disintegrating 4 mg PO Q12H PRN Nausea 01/12/25 01/14/25 History tablet sumatriptan succinate 25 mg tablet 25 mg PO 2XD PRN Migraine Headache 01/12/25 01/14/25 History magnesium 200 mg tablet 400 mg PO DAILY 01/14/25 01/14/25 History riboflavin (vitamin B2) 400 mg 400 mg PO DAILY 01/14/25 01/14/25 History tablet Patient History Medical History Pulmonary nodule Limb alert care status RUE Ventral hernia History of colon cancer s/p colon resection History of breast cancer s/p right mastectomy Osteoarthritis Attention deficit disorder (ADD) Kidney stones Surgical History S/P breast implant, saline (~09/2019) s Bilateral Breast Implant Exchange for Saline Breast Implants(Bilateral) - Kathi Riley MD s Revision Abdominal Scar(Not Applicable) - Kathi Riley MD History of incisional hernia repair (10/08/19) Open Incisional Hernia Repair with Ovitex Mesh, Umbilical Hernia Repair, Enterolysis(Not Applicable) - Nicolas Carranza, 10/08/19 Nausea and vomiting after administration of anesthetic agent History of tooth extraction wisdom teeth H/O lithotripsy 2008 & 2009; laser lithotripsy 2010 Family History Aunt Breast cancer maternal Father Colorectal cancer Diabetes Other Cancer Social History Smoking Status: Never smoker Second Hand Exposure: No; Do You Dip or Chew Tobacco: No; Hx Alcohol Use: Yes Alcohol type: beer and wine Alcohol Intake Frequency Comment: 2-3 drinks a week Hx Substance Use: No Preferred Language: Kiswahili Communication Ability: Effective Solar System Designer Required: No Beliefs That Will Affect Care: None marital status: Current Living Situation: Spouse current occupational status: retired Feels Safe at Home: Yes Assistive Devices: Glasses Review of Systems Review of Systems: All systems reviewed & are unremarkable except as noted in HPI & below Physical Exam Constitutional: well developed and well nourished; no acute distress Respiratory: normal respiratory effort; no respiratory distress and no labored breathing Gastrointestinal (Abdomen): Inspection/Auscultation: abdomen normal to inspection Musculoskeletal: Head/Neck/Chest: normocephalic Neurologic: moves all extremities and awake Psychiatric: Orientation: alert and oriented x 3 Results & Data Vital Signs (Past 12 Hours) Vital Signs Temp Pulse Pulse Resp BP BP Pulse Ox 01/14/25 06:40 62 16 139/83 96 01/14/25 06:00 64 15 144/81 H 100 01/14/25 04:30 60 16 132/74 93 01/14/25 04:30 64 18 132/74 94 01/14/25 04:00 61 15 130/71 96 01/14/25 03:30 56 L 18 153/76 H 99 01/14/25 03:18 59 L 01/14/25 03:04 67 16 100 01/14/25 03:00 70 15 135/80 100 01/14/25 02:37 36.5 C 78 16 138/91 98 O2 Del Method 01/14/25 06:40 Room Air 01/14/25 06:00 Room Air 01/14/25 04:30 Room Air 01/14/25 04:30 Room Air 01/14/25 04:00 Room Air 01/14/25 03:30 01/14/25 03:18 01/14/25 03:04 Room Air 01/14/25 03:00 Room Air 01/14/25 02:37 Room Air PG Care Time/CCT Total # of Minutes Spent Total Time Spent with Patient: Total time spent is greater than 50% in coordination of care (as documented) at patient's floor/unit and/or counseling patient: Coding Level of Care Code 93365 INT INP/OBS CARE 2/55MIN Diagnoses Kidney stone on right side N20.0
[2025-01-14] MEDS: HEPARIN SOD 5,000 UNIT/0.5 ML VIAL SQ SCH (13:02)
[2025-01-14] MEDS ORDERED: PROPOFOL IV EMULSION 10 MG/ML 20 ML VIAL IV ONE (13:11)
[2025-01-14] MEDS: LACTATED RINGER'S 1,000 ML IV SCH (13:11)
[2025-01-14] MEDS ORDERED: LIDOCAINE 2% 2 ML VIAL/AMP(20MG/ML) INFIL ONE (13:11)
--- NOTE | 2025-01-14 13:22 | Anesthesiology Consultation ---
Date of Service January 14, 2025 Assessment & Plan Chart Review Chart Review: Acceptable Risk for Surgery Consults Requested none History Surgery Operation Date: 01/14/25 10:40 Proposed Procedures p Cystoscopy Right Ureteral Stent Placemet, Laser Lithotripsy - Lanre Knight MD Height/Weight Height: 5 ft 7 in Weight: 65.4 kg Allergies Allergy/AdvReac Type Severity Reaction Status Date / Time Sulfa (Sulfonamide Allergy Intermediate Hives Verified 01/14/25 03:48 Antibiotics) oxycodone [From Percocet] AdvReac Intermediate "LOOPY", Verified 01/14/25 03:47 VOMITING Medications Home Medications Medication Instructions Recorded Confirmed Last Taken alendronate 70 mg tablet 70 mg PO WK 08/28/21 01/14/25 12/31/24 dextroamphetamine-amphetamine 20 10 mg PO DAILY 01/04/24 01/14/25 01/13/25 mg tablet cetirizine 10 mg capsule (Zyrtec) 10 mg PO DAILY 05/21/24 01/14/25 01/13/25 atorvastatin 20 mg tablet 20 mg PO DAILY 01/12/25 01/14/25 01/13/25 bupropion HCl 150 mg 24 hr tablet, 300 mg PO DAILY 01/12/25 01/14/25 01/13/25 extended release cefpodoxime 200 mg tablet 200 mg PO 2XD 01/12/25 01/14/25 01/13/25 lisinopril 5 mg tablet 5 mg PO DAILY 01/12/25 01/14/25 01/13/25 ondansetron 4 mg disintegrating 4 mg PO Q12H PRN Nausea 01/12/25 01/14/25 01/08/25 tablet sumatriptan succinate 25 mg tablet 25 mg PO 2XD PRN Migraine Headache 01/12/25 01/14/25 Unknown magnesium 200 mg tablet 400 mg PO DAILY 01/14/25 01/14/25 01/13/25 riboflavin (vitamin B2) 400 mg 400 mg PO DAILY 01/14/25 01/14/25 01/13/25 tablet Active Medications Generic Name Dose Route Start Last Admin Trade Name Freq PRN Reason Stop Dose Admin Amphetamine/Dextroamphetamine 10 mg 01/14/25 09:00 01/14/25 09:05 Dextroamphetamine/Amphetamine Ir 20 Mg Tab PO 01/28/25 08:59 10 mg DAILY KAILASH Administration Atorvastatin Calcium 20 mg 01/14/25 09:00 01/14/25 08:55 Atorvastatin 20 Mg Tab PO 02/13/25 08:59 20 mg DAILY KAILASH Administration Bupropion HCl 300 mg 01/14/25 09:00 01/14/25 08:55 Bupropion Xl 300 Mg Tabcr PO 02/13/25 08:59 300 mg DAILY KAILASH Administration Heparin Sodium (Porcine) 5,000 units 01/14/25 14:00 01/14/25 13:02 Heparin Sod 5,000 Unit/0.5 Ml Vial SQ 02/13/25 13:59 Not Given Q8 KAILASH Sodium Chloride 1,000 mls @ 100 mls/hr 01/14/25 05:18 01/14/25 05:44 Nss IV 01/14/25 15:17 75 mls/hr .Q10H ONE Administration Lactated Ringer's 1,000 mls @ 15 mls/hr 01/14/25 13:15 01/14/25 13:11 Lr IV 01/17/25 13:14 15 mls/hr .Q24H KAILASH Administration NPO Date Last Intake of Fluids: 01/13/25 Time Last Intake of Fluids: 18:00 Date Last Intake of Solids: 01/13/25 Time Last Intake of Solids: 18:00 Past Medical History Medical History Pulmonary nodule Limb alert care status RUE Ventral hernia History of colon cancer s/p colon resection History of breast cancer s/p right mastectomy Osteoarthritis Attention deficit disorder (ADD) Kidney stones Past Family History Family History Aunt Breast cancer maternal Father Colorectal cancer Diabetes Other Cancer Past Surgical History Surgical History S/P breast implant, saline (~09/2019) s Bilateral Breast Implant Exchange for Saline Breast Implants(Bilateral) - Kathi Riley MD s Revision Abdominal Scar(Not Applicable) - Kathi Riley MD History of incisional hernia repair (10/08/19) Open Incisional Hernia Repair with Ovitex Mesh, Umbilical Hernia Repair, Enterolysis(Not Applicable) - Nicolas Charlotte Carranza, DO 10/08/19 Nausea and vomiting after administration of anesthetic agent History of tooth extraction wisdom teeth H/O lithotripsy 2008 & 2009; laser lithotripsy 2010 Social History Smoking Status: Never smoker Do You Dip or Chew Tobacco: No Hx Alcohol Use: Yes Alcohol type: wine alcohol intake frequency: holidays/special occasions only Hx Substance Use: No substance use type: does not use Physical Exam Vital Signs Last Vital Signs Temp 36.6 C 01/14/25 13:05 Pulse 72 01/14/25 13:05 Resp 18 01/14/25 13:05 BP 127/72 01/14/25 13:05 Pulse Ox 99 01/14/25 13:05 O2 Del Method Room Air 01/14/25 13:05 Testing Laboratory Results 01/14/25 02:59 01/14/25 02:59 Urine Color Dark Yellow 01/14/25 04:15 Urine Appearance Clear (Clear) 01/14/25 04:15 Urine pH 7.0 (4.5-7.5) 01/14/25 04:15 Ur Specific [place] 1.013 (1.000-1.030) 01/14/25 04:15 Urine Protein 1+ (Negative) H 01/14/25 04:15 Urine Glucose (UA) Negative (Negative) 01/14/25 04:15 Urine Ketones Negative (Negative) 01/14/25 04:15 Urine Nitrite Negative (Negative) 01/14/25 04:15 Ur Leukocyte Esterase 2+ (Negative) H 01/14/25 04:15 Urine WBC (Auto) >50 /hpf (0-5) H 01/14/25 04:15 Urine RBC (Auto) >20 /hpf (0-2) H 01/14/25 04:15 U Hyaline Cast (Auto) 0-2 /lpf (0-2) 01/14/25 04:15 U Epithel Cells (Auto) 0-2 /hpf (0-2) 01/14/25 04:15 Urine Bacteria (Auto) None Seen (None Seen) 01/14/25 04:15 01/14/25 04:15 Urine Culture - Preliminary Urine,Clean Catch No growth - Less than 1,000 colonies/mL, Final report to follow.
[2025-01-14] MEDS ORDERED: ATROPINE SULFATE 0.1 MG/ML 10ML SYR IV PRN (13:26)
[2025-01-14] MEDS ORDERED: PROMETHAZINE HCL 6.25 MG in SODIUM CHLORIDE 0.9% 50 ML IV PRN (13:26)
[2025-01-14] MEDS ORDERED: ONDANSETRON INJ 2 MG/ML 2 ML VIAL IV PRN (13:26)
[2025-01-14] MEDS ORDERED: HYDROmorphone INJ 2 MG/ML SYR/VIAL IV PRN (13:26)
[2025-01-14] MEDS ORDERED: PROPOFOL IV EMULSION 10 MG/ML 100 ML VIAL IV ONE (13:43)
[2025-01-14] MEDS ORDERED: SCOPOLAMINE 1 MG/72 HR TDSY PATCH TD ONE (13:53)
[2025-01-14] MEDS ORDERED: ONDANSETRON INJ 2 MG/ML 2 ML VIAL ONE (14:07)
[2025-01-14] MEDS ORDERED: DEXAMETHASONE SOD INJ 4 MG/ML VIAL ONE (14:07)
[2025-01-14] MEDS ORDERED: ePHEDrine sulfate 50 MG/5 ML SYR ONE (14:08)
[2025-01-14] MEDS ORDERED: PHENYLEPHRINE 100MCG/ML 5ML SYR ONE ×2 (14:19→14:26)
[2025-01-14] MEDS ORDERED: PHENYLEPHRINE HCL 10 MG/ML VIAL ONE (14:26)
--- NOTE | 2025-01-14 14:44 | Communication Note ---
Patient seen and examined at bedside. Flank pain was severe overnight, now bearable. Dilaudid only effective prn at this time. Would like definitive management of stones. On exam, lying comfortably, trace tenderness to palpation on right back and flank, positive CVA tenderness. Significant creatinine elevation consistent with imaging findings of large stone and hydroureter. UA consistent with bacterial infection in setting of hydroureter. Patient presenting with hydroureter in setting of large renal stone. Size far too large to pass conservatively. Urology consult, appreciate recs. Continue ceftriaxone, increase rate of fluids. Will be getting stent placement and laser lithotripsy later today. Date of Service: January 14, 2025
[2025-01-14] MEDS: DIATRIZOATE MEGLUMINE 30% 100ML VIAL INSTIL ONE (15:10)
--- NOTE | 2025-01-14 15:20 | Operative Report ---
PG Post Operative Report Pre & Post Diagnosis Operation Date: 01/14/25 10:40 Preoperative diagnosis: Right ureteral and renal stones Postoperative diagnosis: Right ureteral and renal stones I identified the patient and participated in the time-out.: Yes Procedure Operation Date: 01/14/25 10:40 cystoscopy, right retrograde pyelogram, right ureteroscopy, laser lithotripsy and basket extraction of stone, right ureteral stent placement Surgeon Lanre Knight MD Tape Weaver None Estimated Blood Loss 0 Findings See Below 2 stones in the distal right ureter, fragmented with laser and removed Redundant folds of the proximal ureter at the right UPJ, no significant obstruction Stone in the right kidney was fragmented with the laser Right ureteral stent left in place Specimens Right ureteral stones for chemical analysis Drains 6 Niuean x 26 cm double-J ureteral stent in the right ureter Anesthesia Type General Complications none Disposition Accompanied Patient To Recovery: Yes Disposition: Recovery Room Indications This is a 69-year-old female followed by urology for nephrolithiasis. Due to deteriorating renal function and ongoing flank pain, she is brought to the OR for right ureteral stent placement and possible stone treatment. Description of Procedure The patient was identified in the holding area and informed consent was confirmed. She was marked on the right side, then was taken to the operating room where general anesthesia was initiated. She was placed in the dorsal lithotomy position with all pressure points appropriately padded. She was prepped and draped in the usual sterile fashion and a preoperative timeout was performed. A well-lubricated cystoscope was inserted per urethra and panendoscopy was perf ormed. The urethra was normal with no strictures or mucosal abnormalities. Her bladder appeared grossly normal with no tumors or stones appreciated. Ureteral orifices were in orthotopic position bilaterally I attempted to advance a 0.038 inch zip wire up the right ureter under fluoroscopic guidance, however met resistance in the distal ureter. The wire curled back upon itself at the level of the shadow suspicious for obstructing stone. I advanced a semirigid ureteroscope into the distal ureter and identified the stone. The 200 m thulium laser fiber was introduced, then using high frequency / low amplitude settings, the stone was dusted and broken into smaller fragments. Once the fragments were satisfactorily small, they were removed to the bladder with a wire basket. These fragments were evacuated at the end of the procedure and sent for chemical analysis. It appeared that there were 2 separate moderate sized stones in the distal ureter which were removed. Once these were cleared, I advanced a wire to the kidney under fluoroscopic guidance. There was a shadow over the renal silhouette suspicious for residual stone in the kidney. Once the wire seems to be in good position, I advanced a 5 Niuean open-ended catheter over it to try to aspirate some urine from the kidney, however no urine could be aspirated, suggesting the wire was actually still in some redundant tissue at the renal pelvis. The flexible ureteroscope was then introduced and used to survey the proximal ureter. There was a fair amount of redundant tissue of the ureter at the renal pelvis. I was able to navigate the flexible ureteroscope into the kidney itself. In this area I was able to visualize a large stone consistent with that seen on CT scan. The wire was then repositioned into the kidney through the ureteroscope and used to position a second wire as well. One of the wires was used to place a ureteral access sheath. I then used a flexible ureteroscope to perform laser lithotripsy and turned the stone to dust and debris no larger than approximately 1 to 2 mm in diameter. Once satisfied that all stone fragments had been removed or were sufficiently small to pass without issue, the ureteroscope was withdrawn, surveying the ureter on the way out. There was no evidence of significant trauma or perforation. The cystoscope was reinserted over the wire, then a 6 Niuean x 24 centimeter double-J ureteral stent was advanced. When the wire was removed, the proximal curl was visualized in the kidney with x-ray, and the distal curl visualized in the bladder with the cystoscope. The stone fragments were then evacuated and sent for chemical analysis. At this point the bladder was drained and all instrumentation was removed. The patient was then awakened from anesthesia and was brought to the PACU in stable condition. I attest to the content of the Intraoperative Record and any orders documented therein. Any exceptions are noted below.
--- NOTE | 2025-01-14 15:39 | Anesthesiology Progress Note ---
Date of Service January 14, 2025 Anesthesia Post Procedure Vital Signs Vital Signs: Temp Pulse Pulse Resp BP BP Pulse Ox 01/14/25 15:35 72 16 113/61 100 01/14/25 15:28 36.0 C L 80 14 116/64 100 01/14/25 13:05 36.6 C 72 18 127/72 99 01/14/25 10:28 36.4 C L 66 18 109/62 97 01/14/25 08:00 36.4 C L 65 18 116/67 99 01/14/25 06:40 62 16 139/83 96 01/14/25 06:00 64 15 144/81 H 100 01/14/25 04:30 60 16 132/74 93 01/14/25 04:30 64 18 132/74 94 01/14/25 04:00 61 15 130/71 96 01/14/25 03:30 56 L 18 153/76 H 99 01/14/25 03:18 59 L 01/14/25 03:04 67 16 100 01/14/25 03:00 70 15 135/80 100 01/14/25 02:37 36.5 C 78 16 138/91 98 O2 Del Method O2 Flow Rate 01/14/25 15:35 Oxymask 4 01/14/25 15:28 Oxymask 6 01/14/25 13:05 Room Air 01/14/25 10:28 Room Air 01/14/25 08:00 Room Air 01/14/25 06:40 Room Air 01/14/25 06:00 Room Air 01/14/25 04:30 Room Air 01/14/25 04:30 Room Air 01/14/25 04:00 Room Air 01/14/25 03:30 01/14/25 03:18 01/14/25 03:04 Room Air 01/14/25 03:00 Room Air 01/14/25 02:37 Room Air Pain Intensity Right Flank: Pain Intensity: 5 Transfer of Care Handoff Completed per policy Notes Mental Status: alert / awake / arousable and participated in evaluation Patient Amnestic to Procedure: Yes Nausea / Vomiting: adequately controlled Pain: adequately controlled Airway Patency, RR, SpO2: stable & adequate BP & HR: stable & adequate Hydration State: stable & adequate Anesthetic Complications: no major complications apparent and Pt Satisfied with anesthetic care
--- NOTE | 2025-01-14 15:49 | Fluoroscopy Report ---
INTRAOPERATIVE FLUOROSCOPIC IMAGES: CLINICAL HISTORY: Right renal calculi Fluoroscopy time: 35 seconds Number of fluoroscopic images: 3 Ka,r: 5.4 mGy: FINDINGS: 3 fluoroscopic spot images are provided during a right-sided retrograde study. The first st udy demonstrates a catheter within the proximal right ureter. Contrast was instilled. There is an roman arent narrowing at the level of the ureteropelvic junction. Calcific densities project over the right renal shadow consistent with calculi. Image #2 demonstrates a guidewire and catheter within the righ t renal pelvis image #3 demonstrates the proximal pigtail right-sided nephroureteral stent. IMPRESSION: Fluoroscopic spot images obtained during a retrograde study and placement of a right-side d nephroureteral stent Electronically signed by: Aguila Lema M.D. 01/14/2025 3:48 PM
[2025-01-14] MEDS: HYDROmorphone INJ 0.5 MG/0.5 ML SYR IV PRN (20:06)
[2025-01-14] MEDS: PHENAZOPYRIDINE HCL 100 MG TAB PO PRN (20:06)
[2025-01-14] MEDS: ONDANSETRON INJ 2 MG/ML 2 ML VIAL IV PRN (20:07)
[2025-01-14 23:26] VITALS: RESP 18
[2025-01-15 03:11] VITALS: PULSE 70; O2SAT 96
[2025-01-15 06:49] LABS: Hematocrit (blood only) 32.8 % (37.0-47.0); Hemoglobin 10.5 g/dL (12.0-16.0); Immature Granulocytes # (auto) 0.03 K/uL (0.01-0.20); Immature Granulocytes % (auto) 0.4 %; Mean Corpuscular Hemoglobin 31.7 pg (25.0-34.0); Mean Corpuscular Volume 99.1 fL (80.0-100.0); Platelet Count 285 K/uL (130-400); RDW Standard Deviation 45.9 fL (36.4-46.3); Red Blood Count 3.31 M/uL (4.20-5.40); White Blood Count 7.62 K/ul (4.8-10.8)
[2025-01-15 07:58] LABS: Anion Gap 6.0 (3-11); Blood Urea Nitrogen 14.0 mg/dl (6-23); Calcium 8.3 mg/dl (8.6-10.3); Carbon Dioxide 24.0 mmol/L (21-32); Chloride 108.0 mmol/L (98-107); Creatinine Clr Calc Pharmacy 47.6 ml/min; Glucose 104.0 mg/dl (70-99(Fasting)); Potassium 4.8 mmol/L (3.5-5.1); Sodium 138.0 mmol/L (136-145)
[2025-01-15] MEDS: COUGH DROP (SUGAR FREE) LOZ 24 LOZ/1 BOX BUCCAL ONE (08:13)
[2025-01-15 08:21] VITALS: BP 110/64; TEMP 98.1
--- NOTE | 2025-01-15 09:27 | Urology Progress Note ---
Date of Service January 15, 2025 Assessment & Plan (1) Kidney stone on right side: (2) ARF (acute renal failure): Plan: 69-year-old female admitted for right renal colic and ANTONIETTA secondary to obstructing right ureteral stones. - Pt POD#1 s/p cystoscopy, right ureteroscopy, laser lithotripsy and right ureteral stent placement - Doing well, progressing as expected - Afebrile with stable vitals - Lab work reviewed - creatinine improved to 1.07, no leukocytosis - Tolerating right ureteral stent with minimal bother - Reviewed that hematuria can be expected with stent in place - Okay to d/c from perspective when medically stable - Recommend d/c with course of Tamsulosin, prn Pyridium and oxybutynin, and prn pain medication for stent management - Plan for KUB early next week as outpatient to determine next steps - Expected clinical course reviewed, all questions answered - Will arrange outpatient follow-up with our service - Urology will sign off, please contact our service with any additional questions or concerns Admission and Anticipated Discharge Date Admission Date: January 14, 2025 Subjective Patient seen and examined at bedside this morning. No issues overnight. Patient feeling well. Tolerating stent. Voiding spontaneously, hematuria postprocedure. No fever or chills. Review of Systems Constitutional: as per Subjective / HPI Genitourinary: as per Subjective / HPI Physical Exam Constitutional: well developed and well nourished; no acute distress Respiratory: normal respiratory effort; no respiratory distress and no labored breathing Gastrointestinal (Abdomen): Inspection/Auscultation: abdomen normal to inspection Musculoskeletal: Head/Neck/Chest: normocephalic Neurologic: moves all extremities and awake Psychiatric: Orientation: alert and oriented x 3 Results & Data Vital Signs (Past 12 Hours) Vital Signs Temp Pulse Pulse Resp BP BP Pulse Ox 01/15/25 08:20 36.7 C 70 18 110/64 96 01/15/25 03:10 36.6 C 70 18 91/55 L 94/55 L 96 01/14/25 23:58 36.8 C 83 18 101/61 94 01/14/25 23:26 36.7 C 81 18 96/58 L 91 O2 Del Method 01/15/25 08:20 Room Air 01/15/25 03:10 Room Air 01/14/25 23:58 Room Air 01/14/25 23:26 Room Air PG Care Time/CCT Total # of Minutes Spent Total Time Spent with Patient: Total time spent is greater than 50% in coordination of care (as documented) at patient's floor/unit and/or counseling patient: Coding Level of Care Code 01053 SUB INP/OBS CARE 03/08MIN Diagnoses Kidney stone on right side N20.0 ARF (acute renal failure) N17.9
--- NOTE | 2025-01-15 11:32 | Communication Note ---
By CMS guidelines, a determination that the admission or continued stay is not medically necessary has been made by a member of the UR committee and a physician for this hospital stay, therefore a Code 44 will be completed and the Inpatient admission will be changed to outpatient. Date of Service: January 15, 2025
--- NOTE | 2025-01-15 17:13 | Discharge Summary ---
Discharge Summary Date of Service January 15, 2025 Principal Dx & Hospital Course #1 = Principal Diagnosis (1) ARF (acute renal failure): Assessment and plan below following discussion of case with ED provider and reviewing patient history/pertinent normal/abnormal diagnostic test results. ARF Secondary to progressive obstructive uropathy Recurrent kidney stones No sepsis for now Home CAITLYN inhibitor and NSAID Rx contributory hypertension, stable hyperlipidemia on statin Rx Right breast cancer status post surgery status post tamoxifen Rx, in remission colon cancer status post surgery, in remission ADHD, mood disorder, stable on regimen Admit to MedSurg Analgesia, strain urine Patient counseled regarding adverse effects of NSAIDs on kidney function. Monitor creatinine response to IVF, hold lisinopril until creatinine back to baseline Urology consult re: obstructing kidney stone N.p.o. in anticipation of procedure DVT prophylaxis. Heparin subcu Full code Text document was generated using Yast voice recognition software. It may contain grammatical or spelling errors. Kindly contact undersigned for clarification of any documentation item in question. Notes For Next Care Provider 69 yo female with pmhx of hypertension, hyperlipidemia, breast cancer status post surgery status post tamoxifen Rx, colon cancer status post surgery, history of calcium oxalate kidney stones, migraine, ADHD, mood disorder who presented for right flank pain. Found to have extremely large renal stones, admitted to medicine. On medicine, urology consulted, who placed stent and did laser li thotripsy with immediate improvement in pain. On 01/15/2025 patient medically stable for discharge home per urology and medicine. Right antecubital IV removed by this provider before discharge. To do: [ ] f/u with urology Medication Changes From Visit -see below Admission HPI Per Admitting Provider History obtained from patient and records. Medical history significant for hypertension, hyperlipidemia, breast cancer status post surgery status post tamoxifen Rx, colon cancer status post surgery, history of calcium oxalate kidney stones, migraine, ADHD, mood disorder. Last week, patient had achy right sided flank pain symptoms reminiscent of kidney stone attack. No fever, no chills, no hematuria. Patient consulted [facility] ER. CT abdomen pelvis showed mild right hydronephrosis with note of 1.6 cm calculus obstructing the right UPJ. Another 7 mm calculus noted in the right UPJ as well. Patient refused admission recommendation because she would need to be transferred to [facility] for urology services after a few days. Patient prescribed oral cefpodoxime course and oxycodone medications on discharge. Patient saw [facility] urologist 2 days ago. Surgery contemplated 01/22. Patient had worsening discomfort last night, unrelieved by oxycodone Rx. Patient trying to sparingly use oxycodone due to adverse effects from prior intake. Ibuprofen working better for patient's pain as per her account. Patient without hematuria, fever, chills. Good bowel movement. Patient consulted ER for worsening symptoms. Medical History as above Surgical History : Urologic procedures, breast implant, breast reconstruction, colectomy, finger surgery, right modified radical mastectomy, umbilical hernia repair, Reeder neuroma removal right foot Family History : Alcoholism, breast cancer, DM, heart disease, ovarian cancer, rectal cancer, suicide Personal/Social history : Non-smoker, occasional EtOH intake, retired schoolteacher Discharge Exam Gen: A&O 3 NAD HEENT: NCAT, EOMI, not icteric. External ears normal. No rhinorrhea. Moist mucous membranes. Neck: Supple, full range of motion, no observable masses, No meningeal sign. Lungs: No Respiratory distress. CV: RRR, no edema. Abdomen: Soft, nondistended, No rebound tenderness. MSK: No joint swelling, no redness. Skin: No rashes, petechiae, lesions. Normal color per patient. Neuro: Normal Gait, Grossly intact. Psych: Appropriate for situation. Updated Medication List Medication Instructions Recorded Confirmed Type alendronate 70 mg tablet 70 mg PO WK 08/28/21 01/14/25 History dextroamphetamine-amphetamine 20 10 mg PO DAILY 01/04/24 01/14/25 History mg tablet cetirizine 10 mg capsule (Zyrtec) 10 mg PO DAILY 05/21/24 01/14/25 History atorvastatin 20 mg tablet 20 mg PO DAILY 01/12/25 01/14/25 History bupropion HCl 150 mg 24 hr tablet, 300 mg PO DAILY 01/12/25 01/14/25 History extended release lisinopril 5 mg tablet 5 mg PO DAILY 01/12/25 01/14/25 History ondansetron 4 mg disintegrating 4 mg PO Q12H PRN Nausea 01/12/25 01/14/25 History tablet sumatriptan succinate 25 mg tablet 25 mg PO 2XD PRN Migraine Headache 01/12/25 01/14/25 History magnesium 200 mg tablet 400 mg PO DAILY 01/14/25 01/14/25 History riboflavin (vitamin B2) 400 mg 400 mg PO DAILY 01/14/25 01/14/25 History tablet meloxicam 7.5 mg tablet 7.5 mg PO DAILY PRN pain 3 days #3 01/15/25 Rx tabs phenazopyridine 100 mg tablet 100 mg PO TID PRN pain #30 tabs 01/15/25 Rx (Pyridium) Hospital Stay Data Consultations 01/14/25 05:33 ED Decision to Admit Stat 01/14/25 08:04 Consult Urology Routine 01/14/25 08:22 Consult Urology Routine Procedures Performed Operation Date: 01/14/25 10:40 Actual Procedures p Cystoscopy, Laser Lithotripsy, Retrograde Pyelogram, Ureteroscopy, Basket Extraction of Stone(Right) - Lanre Knight MD s Right Ureteral Stent Placement,(Right) - Lanre Knight MD Diagnostic Imagining Performed 01/14/25 03:51 CT abd pelvis wo con Stat 01/14/25 13:30 FL retrograde includes kub Routine Pending Results Patient Have Any Pending Studies at Discharge: No Discharge Instructions Given to Patient (Per Discharging Provider) Diagnosis: Acute Renal Failure, resolved, Right Hydroureter, Large obstructive nephrolithiasis Incidental Findings: left renal stones, diverticulosis Follow Ups: PCP, urology 1. Please stay hydrated! 2. Please follow up with PCP, urology Total Time Total Time Spent Total Time Spent (In Minutes): I spent a total of 35 minutes in direct patient care, including [id number] time with the patient and/or family, reviewing medical records, ordering and reviewing diagnostic tests, and coordinating care with other healthcare providers. This time includes: history taking, physical examination, medical decision making, counseling, ECG interpretation, imaging interpretation, lab interpretation, orders, and education, excluding time spent in the performance of separately billed services.
== END 2025-01-15 13:15 | disposition home or self-care (01) | DRG 660 ==
LOC: ED 02:35 → INTOOBSV 05:24 → 3W 05:24